=== PATIENT | female | born 1965 | race Caucasian/White ===

== ENCOUNTER 2020-04-28 18:06 | Emergency (ER) | payer BC, SELFPAY ==
--- NOTE | 2020-04-28 18:15 | DI.RAD_ITS ---
EXAM: XR RIBS RT PA CHEST 3V CLINICAL HISTORY: fall, right rib pain ,r/o fx at ribs 6-9 TECHNIQUE: 2D digital imaging was performed. COMPARISON: No exams were available for comparison FINDINGS: MEDIASTINUM: Normal. HEART: Normal. PULMONARY VASCULATURE: Normal. LUNGS: Clear. PLEURAL SPACE: No pleural effusion or pneumothorax. BONE:Normal. RIGHT RIBS: Normal. OTHER FINDINGS:Normal. IMPRESSION: 1. No acute pulmonary findings. 2. Unremarkable right ribs. DATA REPOSITORY: RADIATION DOSE DELIVERED:
[2020-04-28 18:18] VITALS: BP 123/85; PULSE 87; RESP 18; TEMP 36.5; O2SAT 99
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
[2020-04-28] MEDS: Lidocaine 5% Patch 1 PATCH TP (18:34)
--- NOTE | 2020-04-28 19:08 | DI.VRAD_ITS ---
PROCEDURE INFORMATION: Exam: XR Right Ribs with PA Chest, 3 Views Exam date and time: 04/28/2020 6:38 PM Age: 54 years old Clinical indication: Right rib pain; R/O FX ribs 6-9 TECHNIQUE: Imaging protocol: XR Right ribs 3 views with PA chest. COMPARISON: No relevant prior studies available. FINDINGS: Lungs: No alveolar infiltrate. Pleural space: No pleural fluid collection. No pneumothorax. Heart/Mediastinum: Normal heart size. Bones/joints: Spinal degenerative changes. No acute fracture. Organs: Prior cholecystectomy. IMPRESSION: 1. No acute fracture. 2. No active pulmonary disease. Dictated and Authenticated by: Johnathan Roland MD. Ordering:ZEINA Mccartney MD
== END 2020-04-28 19:20 | disposition home or self-care (01) ==
PROVIDERS: Emergency Provider Student in an Organized Health Care Education/Training Program
DX: S20.221A Contusion of right back wall of thorax, initial encounter (principal); V00.831A Fall from motorized mobility scooter, initial encounter
CPT/HCPCS: 99283; 71046; 71100